=== PATIENT | female | born 1995 | race Caucasian/White ===

== ENCOUNTER 2020-08-13 17:17 | Emergency (ER) | payer OTHER | END 2020-08-13 19:50 | disposition home or self-care (01) | LOC: ER1 17:17 | DX: L98.9 Disorder of the skin and subcutaneous tissue, unspecified (principal); F19.90 Other psychoactive substance use, unspecified, uncomplicated; F17.200 Nicotine dependence, unspecified, uncomplicated; B19.20 Unspecified viral hepatitis C without hepatic coma; Z88.8 Allergy status to other drugs, medicaments and biological substances ==